=== PATIENT | male | born 1950 | race Caucasian/White ===

== ENCOUNTER 2017-02-17 09:52 | Day surgery (SDC) | payer OTHER ==
[~2017-02-17] VITALS: Ht 182.9 cm; Wt 114.7 kg
[~2017-02-17 09:52] MED LIST: ALEVE220 M1 PO; ASPIR 8181 M1 PO; CIPRO500 MG PO; FLAGYL500 MG PO; TYLENOL EXTRA500 MG PO; VICODIN,LORT1 TABLET PO
== END 2017-02-17 17:25 | disposition home or self-care (01) ==
LOC: CATH 09:52
DX: I25.118 Atherosclerotic heart disease of native coronary artery with other forms of angina pectoris (principal); I25.84 Coronary atherosclerosis due to calcified coronary lesion; E66.9 Obesity, unspecified; Z68.34 Body mass index [BMI] 34.0-34.9, adult; Z82.49 Family history of ischemic heart disease and other diseases of the circulatory system; Z79.82 Long term (current) use of aspirin
CPT/HCPCS: C1769; C1887; J1644; J2250; J3010

== ENCOUNTER 2017-02-22 19:12 | Emergency (ER) | payer OTHER ==
[~2017-02-22] VITALS: Ht 180.3 cm; Wt 113.5 kg
[2017-02-22 20:36] VITALS: BP 121/73
== END 2017-02-22 20:36 | disposition home or self-care (01) ==
LOC: RME 19:12 → EME 19:12 → RME 20:36
DX: M79.605 Pain in left leg (principal); Z86.718 Personal history of other venous thrombosis and embolism; Z87.442 Personal history of urinary calculi
CPT/HCPCS: 93971; 99281; 99283

== ENCOUNTER 2018-01-15 14:37 | Observation (INO) | payer OTHER ==
[~2018-01-15] VITALS: Ht 182.9 cm; Wt 116.5 kg
[2018-01-15 15:31] LABS: HEMATOCRIT 45.2 % (38.0-50.0); HEMOGLOBIN 15.8 G/DL (12.5-16.6); MCH 33.7 PG (29.0-34.0); MCV 96.4 FL (86-99); PLATELET COUNT 187 K/uL (156-360); RBC DIS.WIDTH-CV 12.5 % (11.8-14.6); RBC DIS.WIDTH-SD 43.5 % (39-53); RED BLOOD COUNT 4.69 M/uL (4.00-5.50); WHITE BLOOD COUNT 6.9 K/uL (4.1-10.2)
[2018-01-15 15:39] LABS: CHLORIDE 109 mEq/L (99-109); SODIUM 143 mEq/L (136-147)
[2018-01-15 15:41] LABS: GLUCOSE 133 mg/dL (70-99)
[2018-01-15 15:45] LABS: CREATININE 0.9 mg/dL (0.6-1.3); GFR ESTIMATE (CALCULATED) > 59 mL/min/ (58.99-99999)
[2018-01-15 15:46] LABS: UREA NITROGEN (BUN) 14 mg/dL (9-23)
[2018-01-15 15:48] LABS: MAGNESIUM 2.2 mg/dL (1.3-2.7)
[2018-01-15 15:53] LABS: TROP-I INTERPRETATION NEGATIVE; TROPONIN-I < 0.01 ng/mL (0.0-0.30)
[2018-01-15] MEDS ORDERED: LIPITOR40 MG PO (17:06)
[2018-01-15] MEDS ORDERED: ZANTAC150 MG PO (17:06)
[2018-01-15] MEDS ORDERED: ALLEGRA ALLERG180 MG PO (17:06)
[2018-01-15 18:05] VITALS: BP 136/80
[2018-01-15 19:23] LABS: HDL CHOLESTEROL 46 MG/DL (Desirable>=40); LDL CHOLESTEROL 56 mg/dL (Desirable<100); NON-HDL CHOLESTEROL 74 mg/dL (Desirable<160); TOTAL CHOLESTEROL 120 mg/dL (Desirable<200); TRIGLYCERIDES 89 MG/DL (Normal: <150)
[2018-01-15 21:16] VITALS: BP 133/73
[2018-01-15 23:37] VITALS: BP 118/68
[2018-01-16 00:59] LABS: TROP-I INTERPRETATION NEGATIVE; TROPONIN-I < 0.01 ng/mL (0.0-0.30)
[2018-01-16 04:13] VITALS: BP 110/68
[2018-01-16 05:53] LABS: HEMATOCRIT 42.4 % (38.0-50.0); HEMOGLOBIN 14.4 G/DL (12.5-16.6); MCH 33.1 PG (29.0-34.0); MCV 97.5 FL (86-99); PLATELET COUNT 180 K/uL (156-360); RBC DIS.WIDTH-CV 12.4 % (11.8-14.6); RBC DIS.WIDTH-SD 44.3 % (39-53); RED BLOOD COUNT 4.35 M/uL (4.00-5.50); WHITE BLOOD COUNT 6.6 K/uL (4.1-10.2)
[2018-01-16 06:11] LABS: TROP-I INTERPRETATION NEGATIVE; TROPONIN-I < 0.01 ng/mL (0.0-0.30)
[2018-01-16 06:12] LABS: CHLORIDE 107 MEQ/L (99-109); CREATININE 0.9 MG/DL (0.6-1.3); GFR ESTIMATE (CALCULATED) > 59 mL/min/ (58.99-99999); POTASSIUM 4.2 MEQ/L (3.7-5.4); SODIUM 141 MEQ/L (136-147); UREA NITROGEN (BUN) 15 mg/dL (9-23)
[2018-01-16 06:16] LABS: GLUCOSE 93 mg/dL (70-99)
[2018-01-16 08:01] VITALS: BP 108/65
== END 2018-01-16 09:20 | disposition home or self-care (01) ==
LOC: EME 14:37 → EDOF 16:48 → ENRESERV 16:59 → 5WEST 17:56
PROVIDERS: Internal Medicine; Physician Assistant Medical
DX: R07.9 Chest pain, unspecified (principal); I25.10 Atherosclerotic heart disease of native coronary artery without angina pectoris; E78.5 Hyperlipidemia, unspecified; K29.70 Gastritis, unspecified, without bleeding; R06.02 Shortness of breath; Z86.718 Personal history of other venous thrombosis and embolism; Z90.49 Acquired absence of other specified parts of digestive tract; Z82.49 Family history of ischemic heart disease and other diseases of the circulatory system; Z79.82 Long term (current) use of aspirin; G47.33 Obstructive sleep apnea (adult) (pediatric); Z91.19 Patient's noncompliance with other medical treatment and regimen; M25.512 Pain in left shoulder; Z83.3 Family history of diabetes mellitus
CPT/HCPCS: 71046; 80048; 80061; 82103 90; 83735; 83880; 84484; 85027; 85379; 93005; 99281; 99285; G0378; J1650

== ENCOUNTER 2018-05-26 17:06 | Emergency (ER) | payer OTHER ==
[~2018-05-26] VITALS: Ht 182.9 cm; Wt 112.3 kg
[~2018-05-26 17:06] MED LIST changes: +ALLEGRA ALLERG180 MG PO; +LIPITOR40 MG PO; +ZANTAC150 MG PO
[2018-05-26 17:50] LABS: APPEARANCE CLEAR ((CLEAR)); BILIRUBIN NEGATIVE; BLOOD SMALL; COLOR COLORLESS ((YELLOW)); GLUCOSE (STRIP) NEGATIVE; KETONES NEGATIVE; LEUKOCYTES NEGATIVE; NITRITE NEGATIVE; PROTEIN (STRIP) NEGATIVE; SPECIFIC GRAVITY 1.003 (1.000-1.030); UROBILINOGEN 0.2 MG/DL (0.2-1.0)
[2018-05-26 17:51] LABS: HEMATOCRIT 45.4 % (38.0-50.0); HEMOGLOBIN 15.4 G/DL (12.5-16.6); MCH 33.3 PG (29.0-34.0); MCHC 33.9 G/DL (30.0-36.0); MCV 98.3 FL (86-99); PLATELET COUNT 170 K/uL (156-360); RBC DIS.WIDTH-CV 12.6 % (11.8-14.6); RBC DIS.WIDTH-SD 45.2 % (39-53); RED BLOOD COUNT 4.62 M/uL (4.00-5.50); WHITE BLOOD COUNT 7.8 K/uL (4.1-10.2)
[2018-05-26 17:53] LABS: BACTERIA RARE /HPF; EPITHELIAL CELLS NONE SEEN /HPF; MUCUS NONE SEEN /LPF; RED BLOOD CELLS 0-5 /HPF (0-5); UCUL ADDED? NO; WHITE BLOOD CELLS 0-5 /HPF (0-5)
[2018-05-26 17:59] LABS: CHLORIDE 105 mEq/L (99-109); POTASSIUM 4.9 mEq/L (3.7-5.4); SODIUM 141 mEq/L (136-147)
[2018-05-26 18:00] LABS: GLUCOSE 90 mg/dL (70-99)
[2018-05-26 18:04] LABS: CREATININE 0.9 mg/dL (0.6-1.3); GFR ESTIMATE (CALCULATED) > 59 mL/min/ (58.99-99999)
[2018-05-26 18:05] LABS: UREA NITROGEN (BUN) 15 mg/dL (9-23)
[2018-05-26] MEDS ORDERED: PERCOCET 5/31 TABLET PO (20:29)
[2018-05-26] MEDS ORDERED: SKELAXIN800 MG PO (20:29)
[2018-05-26] MEDS ORDERED: FLOMAX0.4 MG PO (20:29)
[2018-05-26 20:41] VITALS: BP 122/73
== END 2018-05-26 20:42 | disposition home or self-care (01) ==
LOC: EME 17:06
DX: N20.0 Calculus of kidney (principal); Z79.82 Long term (current) use of aspirin; Z86.718 Personal history of other venous thrombosis and embolism; Z87.442 Personal history of urinary calculi; Z95.810 Presence of automatic (implantable) cardiac defibrillator; Z90.49 Acquired absence of other specified parts of digestive tract
CPT/HCPCS: 74176; 80048; 81003; 85027; 99281; 99283; J1885